=== PATIENT | female | born 1990 | race Caucasian/White ===

== ENCOUNTER 2018-05-10 11:45 | Emergency (ER) | payer SELFPAY ==
[2018-05-10] MEDS ORDERED: Morphine VIAL* 4 MG/ML VIAL (1 ml vial) ONE (12:03)
[2018-05-10] MEDS ORDERED: Ondansetron INJ* 2 MG/ML VIAL ONE (12:03)
[2018-05-10] MEDS ORDERED: Morphine VIAL* 4 MG/ML VIAL (1 ml vial) IV ONE (12:03)
[2018-05-10] MEDS ORDERED: Ondansetron INJ* 2 MG/ML VIAL IV ONE ×2 (12:03→12:33)
[2018-05-10] MEDS ORDERED: NS 0.9% 1000 ML** 1,000 ML IV.FLUID IV ONE (12:03)
--- NOTE | 2018-05-10 12:21 | ED ---
Abdominal Pain/Female - HPI Summary HPI Summary: This patient is a 28 year old F presenting to ED accompanied by Pilar, a friend, with a chief complaint of severe suprapubic pain since this morning. While vomiting this morning, she hit her head against on a handicap bar at the hotel. She came from [place] to visit a friend. The CC is described as feeling similar to when she had food poisoning like sharp pains. The patient rates the pain 10/10 in severity. Symptoms aggravated by nothing. Symptoms alleviated by nothing. Patient reports N/V/D (yellow bile and gooey, brown/ yellow diarrhea, 10+ episodes of diarrhea). Patient denies rectal bleeding. Current vitals include 79 BPM, 97 O2 sat, and BP 142/77. PMHx of spinal stenosis in her neck, endometriosis, UTI, and hidradenitis suppurativa. SHx appendectomy and cholecystectomy. She has had two episodes of food poisoning in the past. She denies hx of C. diff. She is allergic to Biaxin and penicillin. LNMP is 05/07/18. The patient smokes less than a pack a day, has ETOH rarely, and smokes marijuana every day but denies smoking marijuana this morning. - History of Current Complaint Chief Complaint: EDAbdPain Stated Complaint: VOMITING Time Seen by Provider: 05/10/18 12:06 Hx Obtained From: Patient, Other: - friend, Pilar Hx Last Menstrual Period: 05/07/18 ?: No Onset/Duration: Sudden Onset, Lasting Hours - since this morning, Still Present Timing: Constant Severity Initially: Severe Severity Currently: Severe Pain Intensity: 10 Pain Scale Used: 0-10 Numeric Location: Suprapubic Character: Sharp Aggravating Factor(s): Nothing Alleviating Factor(s): Nothing Associated Signs and Symptoms: Positive: Nausea, Vomiting, Diarrhea, Other: - denies rectal bleeding Allergies/Adverse Reactions: Allergies Allergy/AdvReac Type Severity Reaction Status Date / Time clarithromycin [From Biaxin] Allergy GI Upset Verified 05/10/18 11:56 Penicillins Allergy Unknown Verified 05/10/18 11:56 Reaction Details PMH/Surg Hx/FS Hx/Imm Hx Endocrine/Hematology History: Denies: Hx Diabetes Cardiovascular History: Denies: Hx Coronary Artery Disease, Hx Hypertension - Surgical History Surgery Procedure, Year, and Place: appendectomy and cholecystectomy Infectious Disease History: No Infectious Disease History: Denies: Traveled Outside the [place] in Last 30 Days - Family History Known Family History: Positive: Cardiac Disease - Father - CAD - Social History Alcohol Use: Rare Hx Substance Use: Yes Substance Use Type: Reports: Marijuana - every day use but not this morning Smoking Status (MU): Current Every Day Smoker Type: Cigarettes Amount Used/How Often: less than a pack a day Review of Systems Negative: Fever Positive: Abdominal Pain - suprapubic, Vomiting - yellow bile , Diarrhea - brown /yellow, 10+ episodes, Nausea, Other - denies rectal bleeding All Other Systems Reviewed And Are Negative: Yes Physical Exam - Summary Physical Exam Summary: Appearance: Ill-appearing, severe pain distress, well-nourished. The patient is in tears and crying, is in position and is doubled over in pain even after given Morphine. Skin: Warm, color reflects adequate perfusion, diaphoretic Head: Normal Head/Face inspection, atraumatic Eyes: Conjunctiva clear. PERRL, EOMI. ENT: Normal inspection. Mucous membranes are moist. Neck: Supple, no nodes, no JVD Respiratory: Lungs clear, normal breath sounds, no respiratory distress Cardio: RRR, No murmur, pulses normal, brisk capillary refill Abdomen: Soft, Suprapubic tenderness, no rebound, no guarding, no masses, non- distended Bowel sounds: Present Musculoskeletal: Strength Intact/ROM intact, no calf tenderness, no edema. Psychological: Normal Neuro: Alert, muscle tone normal, no focal deficit Triage Information Reviewed: Yes Vital Signs On Initial Exam: Initial Vitals Temp Pulse Resp BP Pulse Ox 97.0 F 83 18 124/76 97 05/10/18 11:45 05/10/18 11:45 05/10/18 11:45 05/10/18 11:45 05/10/18 11:45 Vital Signs Reviewed: Yes - Snow Coma Scale Best Eye Response: 4 - Spontaneous Best Motor Response: 6 - Obeys Commands Best Verbal Response: 5 - Oriented Coma Scale Total: 15 Diagnostics - Vital Signs Vital Signs Temp Pulse Resp BP Pulse Ox 05/10/18 12:07 25 05/10/18 11:45 97.0 F 83 18 124/76 97 - Laboratory Lab Statement: Any lab studies that have been ordered have been reviewed, and results considered in the medical decision making process. Re-Evaluation - Re-Evaluation First Eval Re-Evaluation Time: 15:27 Comment: The patient reports that her abdominal pain has settled but her CC is now AWAD. She also reports that when she was vomiting this morning, she hit her head on the handicap rail at the hotel. The vomiting has now resolved. She also reports that her parents aren't coming to [facility]. Second Eval Re-Evaluation Time: 17:00 Change: Improved Comment: Patients headache is now gone, and she is sitting up and smiling. She no longer wants the brain CT and will sign AMA. Her friend Pilar is coming to pick her up. Abdominal Pain Fem Course/Dx - Course Course Of Treatment: This patient is a 28 year old F presenting to ED accompanied by Pilar, a friend, with a chief complaint of severe suprapubic pain since this morning. Pt medications reviewed this visit. Nurses note reviewed. Allergies noted. In the ED course, the patient was given fluids, Dilaudid, Morphine, and [address] was indicated because the patient struck her head and is vomiting. Patient no longer wants the head CT since her AWAD resolved, and will sign AMA. Discharge - Sign-Out/Discharge Documenting (check all that apply): Patient Departure - AMA Patient Received Moderate/Deep Sedation with Procedure: No - Discharge Plan Condition: Improved Disposition: AGAINST MEDICAL ADVICE Referrals: No Primary Care Phys,NOPCP [Primary Care Provider] - - Attestation Statements Document Initiated by Scribe: Yes Documenting Scribe: Ricco Giraldo Provider For Whom Roro is Documenting (Include Credential): Grecia Carlson MD Scribe Attestation: Ricco Gonsales, scribed for Grecia Carlson MD on 05/10/18 at 1710. Status of Scribe Document: Ready
[2018-05-10] MEDS ORDERED: HYDROmorphone INJ1* 1 MG/ML SYRINGE IV SLOW PU ONE (12:30)
[2018-05-10] MEDS ORDERED: Pantoprazole IV* 40 MG IV ONE (13:09)
[2018-05-10] MEDS ORDERED: Metoclopramide IV* 5 MG/ML 2 ML VIAL IV ONE (16:23)
[2018-05-10] MEDS ORDERED: Ketorolac INJ* 30 MG/ML 1 ML VIAL IV PUSH ONE (16:24)
[2018-05-10] MEDS ORDERED: ASA-APAP-CAFFEINE ES (NF) 1 TAB TAB PO ONE (16:25)
[2018-05-10] MEDS ORDERED: NS 0.9% 1000 ML** 1,000 ML BOLUS ONE (16:30)
[2018-05-10 18:04] LABS: Urine Appearance Clear; Urine Bacteria Absent (Absent); Urine Bilirubin Negative (Negative); Urine Blood 1+ (Negative); Urine Color Yellow; Urine Glucose Negative (Negative); Urine Ketones Trace (Negative); Urine Nitrite Negative (Negative); Urine Protein Negative (Negative); Urine Red Blood Cell 2+(6-10/hpf) (Absent); Urine Specific Gravity 1.019 (1.010-1.030); Urine Urobilinogen Negative (Negative); Urine White Blood Cell Absent (Absent)
[2018-05-10 18:18] VITALS: BP 95/77
== END 2018-05-10 18:17 | disposition home or self-care (01) ==
LOC: ED 11:45
DX: R10.30 Lower abdominal pain, unspecified (principal); R11.2 Nausea with vomiting, unspecified; R19.7 Diarrhea, unspecified; S09.90XA Unspecified injury of head, initial encounter; W22.09XA Striking against other stationary object, initial encounter; Y92.59 Other trade areas as the place of occurrence of the external cause; Z87.440 Personal history of urinary (tract) infections; Z90.49 Acquired absence of other specified parts of digestive tract; Z90.89 Acquired absence of other organs; Z88.1 Allergy status to other antibiotic agents; Z88.0 Allergy status to penicillin; F17.210 Nicotine dependence, cigarettes, uncomplicated
CPT/HCPCS: 81003; 81015; 96361; 96374; 96375; 96376; 99284; A9270-GY; J1170; J1885; J2270; J2405; J2765